=== PATIENT | male | born 1990 | race American Indian/Alaskan Native ===

== ENCOUNTER 2018-02-23 06:24 | Day surgery (SDC) | payer OTHER ==
[2018-01-03 18:13] VITALS: BMI 31.7
[2018-02-23] MEDS ORDERED: Lidocaine/Epinephrine 1% 1:100000 10 ML IJ ONE (07:27)
[2018-02-23] MEDS ORDERED: Bupivacaine 0.25% 20 ML INJ IJ ONE ×2 (07:27→08:21)
[2018-02-23] MEDS ORDERED: ceFAZolin IV 2 gm in Dextrose 2 GM/50 ML BAG IVPB ONE (07:28)
[2018-02-23] MEDS ORDERED: Midazolam 2 MG/2 ML VIAL ONE (07:45)
[2018-02-23] MEDS ORDERED: Propofol 10 mg/ml Inj (20 ML) ONE ×2 (07:45→08:23)
[2018-02-23] MEDS ORDERED: Neostigmine Methylsulfate 3mg/3ml Syringe IV ONE (10:41)
[2018-02-23] MEDS ORDERED: Morphine 4 MG/ML VIAL ONE (10:58)
[2018-02-23] MEDS ORDERED: HYDROmorphone 0.5 mg/0.5 ml ISec IVP PRN (11:21)
--- NOTE | 2018-02-23 12:06 | PCM.SURG1 ---
Surgeon's Initial Post Op Note - Surgeon's Notes Surgeon: Sindhu Hanna MD Thermometer Production Worker: TERA Milian Type of Anesthesia: General Endo Anesthesia Administered By: JUNE Pre-Operative Diagnosis: Bilateral Inguinal hernia. Morbid Obesity Operative Findings: Right Indirect Inguinal hernia. Left Incarcerated inguinal hernia. Morbid obesity. B/L Lipoma of Cord Post-Operative Diagnosis: Right Indirect Inguinal hernia. Left Incarcerated inguinal hernia. Morbid obesity. B/L Lipoma of Cord Operation Performed: Robotic Right Inguinal hernia repair with mesh. Robotic left Incarcerated Inguinal hernia repair with mesh. Robotic Excision of lipoma of speramatic Cord. Lap TAP block Bilaterally Specimen/Specimens Removed: Right Lipoma of cord. Left Lipoma of cord Estimated Blood Loss: EBL {In ML}: 10 Blood Products Given: N/A Drains Used: No Drains Post-Op Condition: Good Date of Surgery/Procedure: 02/23/18 Time of Surgery/Procedure: 12:06
[2018-02-23] MEDS ORDERED: Lactated Ringer's 1,000 ML IV ONE (13:00)
[2018-02-23 14:15] VITALS: O2SAT 96
[2018-02-23 14:49] VITALS: RESP 16
[2018-02-23 16:26] VITALS: BP 109/64; PULSE 72; TEMP 98.9
--- NOTE | 2018-02-24 02:39 | OP ---
Copied To: Ancelmo Hanna MD Attending MD: Ancelmo Hanna MD PROCEDURE DATE: 02/23/2018 PREOPERATIVE DIAGNOSES: 1. Bilateral inguinal hernia. 2. Morbid obesity. POSTOPERATIVE DIAGNOSES: 1. Right indirect inguinal hernia. 2. Left incarcerated indirect inguinal hernia. 3. Lipoma of the spermatic cord bilaterally. 4. Morbid obesity. PROCEDURES DONE: 1. Robotic right inguinal hernia repair with a mesh. 2. Robotic left incarcerated inguinal hernia repair with a mesh. 3. Robotic excision of lipoma of the cord bilaterally. 4. Laparoscopic transversus abdominis plane block placement. SURGEON: The procedure was done by Ancelmo lora MD. STUDIO POTTER: DALTON Milian ANESTHESIA: General endotracheal tube anesthesia. ESTIMATED BLOOD LOSS: Around 10 mL. DRAINS: None. PATHOLOGY: The lipoma of the cord was sent for the pathology. COMPLICATIONS: None. INTRAOPERATIVE FINDINGS: The patient had incarcerated left inguinal hernia and indirect right inguinal hernia, and the patient had lipoma of the cord bilaterally, and extensively morbid omentum. DESCRIPTION OF PROCEDURE: On intraoperative steps, this is a 27-year-old male who was diagnosed with bilateral inguinal hernia, and the patient was consented for the robotic right inguinal hernia repair with the mesh and brought to the OR, placed supine on the operating table. After induction of the anesthesia, the abdomen was prepped and draped in usual sterile fashion. Supraumbilical transverse incision was made after incising the skin, the subcutaneous tissue. The robotic camera port was placed. Pneumo was created. Another 3/8 mm port was placed and robot was brought in. Camera arm as well as arm 1 and arm 2 were docked. First, the incarcerated omentum in the left side was reduced, and lysis of adhesion was done. On the right side, the patient had indirect inguinal hernia, and the peritoneum was incised from the left ASIS up to the right ASIS, and medially the dissection was carried down up to the space of Retzius, laterally on the right side, the peritoneum was dissected from the lateral abdominal wall and dissection was carried down to reduce the hernial sac. The vas deferens and spermatic cord vessels were . The sac appeared to be complete and the sac was divided distally. The sac was reduced back into the peritoneal cavity. Inferior dissection was done up to the pelvic brim. Now, the left side peritoneal dissection was done, and the vas deferens and spermatic cord vessels were dissected. The left side sac also dissected distally, and after complete separation from the spermatic cord vessels and the vas deferens, the sac was divided. The sac was reduced back into the peritoneal cavity and inferior dissection was done up to the pelvic brim. Now the right anatomical mesh was placed, and then the left anatomical mesh was placed, and after proper implantation of the mesh, the peritoneum was sutured with 0 Vicryl as well as 3-0 PDS V-Loc continuous suture, and now the specimen was sent off the table for the pathology, and the procedure was converted to laparoscopy. Bilateral TAP block was given left and right side, 30:30 mL of was given in transverse abdominis muscles plane block, and after that, the pneumo was deflated. Umbilical port site was closed in two layers, the fascia with 0-Vicryl interrupted suture, skin with 4-0 Monocryl, and all the port was closed in the same way. A dry sterile dressing was applied. The patient was extubated in OR, sent to the postanesthesia care unit in stable condition. Ancelmo Hanna MD
== END 2018-02-23 15:30 | disposition home or self-care (01) ==
LOC: C.SDS 06:24
PROVIDERS: ATTEND Surgery Surgical Critical Care
DX: K40.20 Bilateral inguinal hernia, without obstruction or gangrene, not specified as recurrent (principal); E66.01 Morbid (severe) obesity due to excess calories; D17.6 Benign lipomatous neoplasm of spermatic cord
CPT/HCPCS: 49650; 55520; 64488; 88302; C1781; J0690; J1885; J2250; J2270; J2405; J2704; J2710; J3010; J7120